=== PATIENT | male | born 1985 | race African-American/Black ===

== ENCOUNTER 2021-07-23 22:08 | Emergency (ER) | payer MEDICAID ==
[~2021-07-23] VITALS: Ht 170.2 cm; Wt 66.0 kg
[2021-07-23 23:16] VITALS: BP 139/87
[2021-07-24] MEDS ORDERED: TETANUS, DIPHTHERIA, PERTUSSIS VAC/PF 0.5ML (>10YR OLD) IM ONE (00:15)
[2021-07-24] MEDS ORDERED: IBUPROFEN 800MG TABLET PO ONE (00:15)
[2021-07-24] MEDS ORDERED: BACITRACIN ZINC OINT UDPKT TOP ONE (00:15)
[2021-07-24] MEDS ORDERED: LIDOCAINE HCL/PF 1% 10 MG/ML 5ML VIAL INFIL ONE (00:15)
[2021-07-24] MEDS ORDERED: IBUP-2029 MT (01:24)
[2021-07-24] MEDS ORDERED: CLIN300C12 MT (01:24)
[2021-07-24] MEDS ORDERED: BO1 TP (01:24)
== END 2021-07-24 02:43 | disposition home or self-care (01) ==
LOC: ER 22:08
DX: S61.011A Laceration without foreign body of right thumb without damage to nail, initial encounter (principal); Z88.0 Allergy status to penicillin; W45.8XXA Other foreign body or object entering through skin, initial encounter; Y93.89 Activity, other specified; Y92.89 Other specified places as the place of occurrence of the external cause; Y99.8 Other external cause status
CPT/HCPCS: 12002; 73140; 90471; 90715; 99283; A4217; J3490; Z7610

== ENCOUNTER 2021-07-27 15:44 | Emergency (ER) | payer MEDICAID ==
[~2021-07-27] VITALS: Ht 170.2 cm; Wt 70.0 kg
[~2021-07-27 15:44] MED LIST: BO1 TP; CLIN300C12 MT; IBUP-2029 MT
[2021-07-27] MEDS ORDERED: BACITRACIN ZINC OINT UDPKT TOP ONE (18:15)
[2021-07-27 18:23] VITALS: BP 120/80
== END 2021-07-27 18:26 | disposition home or self-care (01) ==
LOC: ER 15:44
DX: S61.011D Laceration without foreign body of right thumb without damage to nail, subsequent encounter (principal); Z88.8 Allergy status to other drugs, medicaments and biological substances; Z79.899 Other long term (current) drug therapy; Z98.890 Other specified postprocedural states; X58.XXXD Exposure to other specified factors, subsequent encounter
CPT/HCPCS: 99283

== ENCOUNTER 2021-08-08 13:15 | Emergency (ER) | payer MEDICAID ==
[~2021-08-08] VITALS: Ht 165.1 cm; Wt 89.0 kg
[2021-08-08 16:47] VITALS: BP 127/82
== END 2021-08-08 16:48 | disposition home or self-care (01) ==
LOC: ER 13:15
DX: Z48.02 Encounter for removal of sutures (principal)
CPT/HCPCS: 99281